=== PATIENT | female | born 2005 | race Caucasian/White ===

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

== ENCOUNTER 2024-03-16 21:45 | Emergency (ER) | payer BC ==
--- OUTSIDE RECORDS SUMMARY | 2024-03-16 21:48 | XMS REPORT | Continuity of Care Document ---
Author Name Unknown Address [address] [facility] [place] [address] [facility] thconnect Address [address] [place] [address] Care Team Providers Care Reject Opener And Filler Name Role Phone [email or web address] Attending Clinician Kay quinones Doctor Unassigned, [place] Attending Clinician Lissette Eli Attending Clinician [phone] Lexx Hook MD Attending Clinician [phone] [email or web address] Admitting Clinician Kay quinones Payers Payer Name Policy Type Policy Number Effective Date Expirati on Date Source BLUE CROSS-[place]: [employer]OL[employer]OSS (PPO) [id number] Problems Condition Name Condition Details Condition Category Status Onset Date Resolution Date Last Treatment Date Treating Clinician Comments Source Attention deficit hyperactiv ity disorder (ADHD), unspecifie d ADHD type Attention deficit hyperactiv ity disorder (ADHD), unspecifie d ADHD type Disease Active 02-08 00:00: 00 [facility] BMI (body mass index), pediatric, > 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), pediatric, > 99% for age Disease Active 02-08 00:00: 00 [facility] Allergies, Adverse Reactions, Alerts Allergy Name Allergy Type Status Severity Reaction(s) Onset Date Inactive Date Treating Clinician Comments Source No Known Allergie s DA Active U 11-28 00:00: 00 JEANNINE [facility] Social History Social Habit Start Date Stop Date Quantity Comments Source Tobacco use and exposure 2019-08-06 00:00:00 2019-08-06 00:00:00 Never used [facility] Alcohol intake 2019-08-06 00:00:00 2019-08-06 00:00:00 [facility] Sex Assigned At 2005 00:00:00 2005 00:00:00 [facility] Smoking Status Start Date Stop Date Source Never smoker [facility] Medications Ordered Medication Name Filled Medication Name Start Date Stop Date Current Medication? Ordering Clinician Indication Dosage Frequency Signature (SIG) Comments Components Source predniSONE 20 mg tablet 08-06 00:00: 00 Yes [id number] 20mg Take 1 tablet by mouth daily. [facility] FEMYNOR 0.25-35 mg-mcg per tablet 2018-07 00:00: 00 Yes TAKE ONE (1) TABLET(S) BY MOUTH ONCE A DAY. [facility] scopolamine transdermal 1.5 mg (1 mg over 3 days) patch 2016-07 00:00: 00 Yes 1.5mg Apply 1 Patch to area(s) every 72 (seventy-t wo) hours. [facility] Vital Signs Vital Name Observation Time Observation Value Comments S christiano Systolic blood pressure 2019-08-06 21:40:00 127 mm[Hg] [facility] Diastolic blood pressure 2019-08-06 21:40:00 82 mm[Hg] [facility] Heart rate 2019-08-06 21:40:00 71 /min [facility] Body temperature 2019-08-06 21:40:00 36.33 Hoa [facility] Respiratory rate 2019-08-06 21:40:00 16 /min [facility] Body weight 2019-08-06 21:40:00 126.554 kg [facility] Systolic blood pressure 2019-08-06 21:40:00 127 mm[Hg] [place] [facility] Diastolic blood pressure 2019-08-06 21:40:00 82 mm[Hg] [place] [facility] Heart rate 2019-08-06 21:40:00 71 /min [facility] Body temperature 2019-08-06 21:40:00 36.33 Hoa [facility] Respiratory rate 2019-08-06 21:40:00 16 /min [facility] Body weight 2019-08-06 21:40:00 126.554 kg [facility] Procedures Procedure Date / Time Performed Performing Clinician Source EXTERNAL PROVIDER RECORDS 2020-10-05 05:01:00 Doctor Unassigned, [place] [facility] EXTERNAL PROVIDER RECORDS 2020-02-04 05:01:00 Doctor Unassigned, [place] [facility] AUTHORIZATION FOR RELEASE OF PHI 2020-01-14 05:01:00 Doctor Unassigned, [place] [facility] AUTHORIZATION FOR RELEASE OF PHI 2020-01-01 05:01:00 Doctor Unassigned, [place] [facility] Encounters Start Date/Time End Date/Time Encounter Type Admission Type Attending [facility] Care Facility Care Department Encounter ID Source 2023-01-10 00:00:00 2023-01-10 00:00:00 Outpatient [email or web address] [facility] [id number] [facility] 2020-10-05 00:00:00 2020-10-05 00:00:00 Orders Only Doctor Unassigned, [place] [facility] ..840.114 350.1.13.10 4.2.7.2.686 [id number] [id number] [facility] 2020-09-09 00:00:00 2020-09-09 00:00:00 Telephone Lissette Solares [facility] ..840.114 350.1.13.10 4.2.7.2.686 [id number] [facility] 2020-02-04 00:00:00 2020-02-04 00:00:00 Orders Only Doctor Unassigned, [place] [facility] [id number] 350.1.13.10 4.2.7.2.686 [id number] [facility] 2020-01-14 00:00:00 2020-01-14 00:00:00 Orders Only Doctor Unassigned, [place] [facility] [id number] 350.1.13.10 4.2.7.2.686 [id number] [facility] 2020-01-10 00:00:00 2020-01-10 00:00:[address] [facility] [id number] 4.2.7.2.686 [id number] [facility] 2020-01-01 00:00:00 2020-01-01 00:00:00 Orders Only Doctor Unassigned, [place] [facility] [id number] 350.1.13.10 4.2.7.2.686 [id number] [facility] 2019-08-06 15:23:30 2019-08-06 15:53:[address] [facility] [id number] 350.1.13.10 4.2.7.2.686 [id number] 2019-08-06 15:23:30 2019-08-06 15:53:[address] [facility] [id number] 350.1.13.10 4.2.7.2.686 [id number] [facility] 2019-07-24 00:00:00 2019-07-24 00:00:[address] [facility] [id number] 350.1.13.10 4.2.7.2.686 [id number] [facility] Results Test Description Test Time Test Comments Results Result Co mments Source SURG 2018-12-11 16:03:00 --------RUN DATE: 12/11/18 [facility] - LAB *LIVE* PAGE 1 RUN TIME: 1604 Specimen Inquiry RUN USER: INTERFACE --------PATIENT: WILBER CANSECO LOC: AVRIL U #: [id number] AGE/SX: 13/F ROOM: RE11/29/18REG DR: Fauzia Guzman : 03 BED: DIS: STATUS: [facility] TLOC: -------- SPEC #: [id number] RECD: 11/30/18 STATUS: BERNARDA FLEMING #: [id number] DARIUSZ: 11/29/[address]: Fauzia Guzman MD ENTERED: 11/30/18 SP TYPE: SURG OTHR DR: Undefined Provider ORDERED: SURG PATH LVL 4 COPIES TO: Fauzia Guzman MD [address] [place] [id number] Undefined Provider HISTOLOGY: TISSUE ID BLK PCS ESME LEV PROCEDURE DISPOSITION ____ ___ ___ ___ OVARY, NOS A 1 1 PROCEDURES: SURG PATH LVL 4 (11/30/18-1045) TISSUES: A. OVARIAN - LEFT OVARIAN CYST CLINICAL HISTORY DYSMENORRHEA -N94.6; LT OVARIAN CYST -N83.292 CPT CODES CPT CODE(S): 76787 , , , , , , FINAL [...] of the cyst is smooth without excrescences. Tire Shop Manager sections submitted as A1 and A2. ba/nr Grossing performed at [facility] Pathology, [address], [address], CONTINUED ON NEXT PAGE --------RUN DATE: 12/11/18 [facility] - LAB *LIVE* PAGE 2 RUN TIME: 1604 Specimen Inquiry RUN USER: INTERFACE --------SPEC #: [facility]:[id number] PATIENT: WILBER CANSECO #[id number] (Continued) GROSS DESCRIPTION (Continued) [place], [place] [address]. [employer] Truck Operator: Victorino Rosario M.D. MICROSCOPIC DESCRIPTION Left ovarian cyst. Fragments of ovary and cyst wall are present. The simple cyst is lined by a single layer of bland epithelial cells with cilia, consistent with tubal type epithelium. There is no evidence of dysplasia or malignancy. /cm Signed SIGNATURE ON FILE KristinaRene tate Art 12/11/18 1603 -------- END OF REPORT CYTOLOGY 2018-12-03 14:27:00 --------RUN DATE: 12/03/18 [facility] - LAB *LIVE* PAGE 1 RUN TIME: 1427 Specimen Inquiry RUN USER: INTERFACE --------PATIENT: WILBER CANSECO LOC: AVRIL U #: [id number] AGE/SX: 13/F ROOM: RE11/29/18[facility] DR: Fauzia Guzman : 03 BED: DIS: STATUS: [facility] TLOC: -------- SPEC #: [id number] RECD: 11/30/18 STATUS: BERNARDA FLEMING #: [id number] DARIUSZ: 11/29/[address]: Fauzia Guzman MD ENTERED: 11/30/18 SP TYPE: CYTOLOGY OTHR DR: Undefined Provider ORDERED: MARILU HOLLOWAY COPIES TO: Fauzia Guzman MD [address] [place] [address] Undefined Provider HISTOLOGY: TISSUE ID BLK PCS ESME LEV PROCEDURE DISPOSITION ____ ___ ___ ___ PELVIS, NOS A 1 2 PROCEDURES: CB (12/03/18-1252) SUREPATH (11/30/18-1037) TISSUES: A. PELVIS, NOS - PELVIC WASHINGS CLINICAL HISTORY DYSMENORRHEA-N94.6;LT OVARIAN CYST-N83.292 CPT CODES CPT CODE(S): 27306 , 55625 , , , , , FINAL DIAGNOSIS Pelvis, washing: LYMPHOCYTES AND MESOTHELIAL CELLS NEGATIVE FOR ATYPICAL AND MALIGNANT CELLS GROSS DESCRIPTION Pelvic washings. Received are 40 mL of yellow fluid in tube. A SurePath slide and a cell block are prepared from the fluid and submitted for Pap stain and H E stain, respectively. /pdb Grossing performed at [facility] Pathology, [address] [place] [address], [address], [place] [address]. W[employer] Truck Operator: Victorino Rosario M.D. CONTINUED ON NEXT PAGE --------RUN DATE: 12/03/18 [facility] - LAB *LIVE* PAGE 2 RUN TIME: 1427 Specimen Inquiry RUN USER: INTERFACE --------SPEC #: [id number] PATIENT: WILBER CANSECO #[id number] (Continued) MICROSCOPIC DESCRIPTION Pelvic washings. The SurePath consists of lymphocytes as well as sheets of benign mesothelial cells. The cell block is sparsely cellular but shows similar histology. /karlos Signed SIGNATURE ON FILE Kayleigh Bonds 12/03/18 1427 -------- END OF REPORT URINALYSIS [id number] 11:42:00* Test Item Value Reference Range Interpretation Comme nts UA GLUCOSE DIPSTICK (test code = DGLUU) NEGATIVE mg/dL NEG UA BILIRUBIN DIPSTICK (test code = BILU) NEGATIVE mg/dL NEG UA KETONE DIPSTICK (test code = KETU) NEGATIVE mg/dL NEG UA SPECIFIC GRAVITY (test code = SGU) 1.015 SG 1.005-1.030 UA BLOOD DIPSTICK (test code = MAUREEN) NEGATIVE mg/DL NEG UA PH DIPSTICK (test code = KELSEA) 6.0 pH UNITS 5.0-7.0 UA PROTEIN DIPSTICK (test code = PROU) NEGATIVE mg/dL NEG UA UROBILINIOGEN DIPSTICK (test code = URO) 0.2 mg/dL <2.0 UA NITRITE DIPSTICK (test code = LEIGHTON) NEGATIVE SCREEN NEG UA LEUKOCYTE ESTERASE DIPSTICK (test code = LEUU) NEGATIVE Leuk/mcL NEGATIVE Urine Specimen Type: Clean CatchUR HCG [id number] 11:42:00* Test Item Value Reference Range Interpretation Comme nts UR HCG QUAL (test code = HCGQLU) NEGATIVE NEGATIVE Urine Specimen Type: Clean CatchURINALYSIS [id number] 11:31:00* Test Item Value Reference Range Interpretation Comme nts UA GLUCOSE DIPSTICK (test co de = DGLUU) mg/dL NEG UA BILIRUBIN DIPSTICK (test code = BILU) mg/dL NEG UA KETONE DIPSTICK (test cod e = KETU) mg/dL NEG UA SPECIFIC GRAVITY (test co de = SGU) SG 1.005-1.030 UA BLOOD DIPSTICK (test code = MAUREEN) mg/DL NEG UA PH DIPSTICK (test code = KELSEA) pH UNITS 5.0-7.0 UA PROTEIN DIPSTICK (test co de = PROU) mg/dL NEG UA UROBILINIOGEN DIPSTICK (t est code = URO) mg/dL <2.0 UA NITRITE DIPSTICK (test co de = LEIGHTON) SCREEN NEG UA LEUKOCYTE ESTERASE DIPSTI CK (test code = LEUU) Leuk/mcL NEGATIVE Urine Specimen Type: Clean CatchUR HCG [id number] 11:31:00* Test Item Value Reference Range Interpretation Comme nts UR HCG QUAL (test code = HCGQLU) NEGATIVE NEGATIVE Urine Specimen Type: Clean Catch Notes Date/Time Note Provider Source 2018-11-29 15:47:00 [id number] [place] [address] PATIENT NAME: WILBER CANSECO ADMIT DATE: 11/29/18 ACCOUNT NO: [id number] ROOM NO: AGE: 14 REPORT TYPE: OPERATIVE REPORT SEX: F ADMITTING PHYSICIAN: ATTENDING PHYSICIAN: Fauzia Guzman MD OPERATION DATE: 11/29/2018 PREOPERATIVE DIAGNOSES: Bilateral ovarian cysts, left ovarian cyst was the largest 6.3 cm; pelvic pain; and heavy periods. POSTOPERATIVE DIAGNOSES: Large left ovarian cyst about 6 to 7 cm, and right ovary had physiological cysts including a corpus luteum cyst. No evidence of endometriosis. Appendix normal. Gallbladder not well visualized. Liver unremarkable. INDICATIONS: The patient is a 13-year-old with adnexal masses and heavy periods. On pelvic ultrasound, she was found to have ____ mass monitored for 3 months and was without any change. We discussed options about observation with ultrasound followup versus removal of the cyst. The patient and mom ____ proceed with this. She was consented and brought to the OR. PROCEDURE IN DETAIL: After informed consent was verified, the patient was taken back to the OR and placed in supine position on the operating table. After general anesthesia was given, she was placed in dorsal lithotomy position. Arms were tucked inside. The abdomen, vagina, and perineum were prepped and draped in usual sterile fashion. Vinson was placed to drain the bladder and attached to a drainage bag. A small tip TARIK was used for manipulation. Then, this area was draped. A 1 cm infraumbilical incision was made with a scalpel. Using an open laparoscopy technique, fascia was incised and tagged with 0 Vicryl sutures on both edges. Peritoneum entered bluntly and S retractors placed. Site of entry was checked and was unremarkable. Upper abdominal survey was unremarkable as well. The patient was placed in a Trendelenburg position. A 5-mm suprapubic and left lower quadrant ports were placed under direct vision. I was able to visualize the left adnexal mass right on the top. Then, once all the ports were placed, inspection was performed on appendix, both tubes, and uterus. Rest of the pelvic peritoneum unremarkable. No endometriosis. Appendix was unremarkable. The left ovary had complex-appearing mass. One was with a thick wall and other one appeared to be thin wall. This thin wall structure was on to the side of the ovarian pole at the insertion of the infundibulopelvic ligament where the ovarian blood supply came in. The tube was intact, but stretched due to the mass. No other distortion. Pelvic washings were performed. Then, using the monopolar scissors, an incision was made on top of the ovarian capsule and extended about 6 cm to open up the capsule of the ovary and the cyst was gradually grasped and removed. There was clear serous fluid through the cyst that had ruptured and this fluid with thoroughly irrigated and suctioned. The PATIENT NAME: WILBER CANSECO rest of the ovarian mass, the cyst wall was gradually removed by traction, countertraction, and dissection with a tiny amount of it left at the level of the infundibulopelvic ligament insertion. This, I feared that if I removed aggressively it could cause bleeding that could lead to possible loss of the left ovary, so this was not found to be necessary at this time given the serous drainage from the cyst and thin walled nature of the cyst and most of the parts of the ovary. After the cyst was removed, both edges were brought back together just to be in lay adjacently to each other. No Interceed was available for me to rapid. Thorough irrigation suction performed. The right ovary was inspected very well. No evidence of any tumor here. Made an incision on the area that appeared to be more bulging than others, but there is a clear follicular cyst that was drained and there was a corpus luteal cyst that I did not touch. The irrigation suction was performed. The specimen was retrieved through the suprapubic trocar. After thorough irrigation and suction were performed again, trocars were removed under direct vision. After ____ was removed, the fascia was closed with 0 Vicryl in a [id number] fashion. Simple 4-0 Vicryl sutures to close the rest of the incisions. Vinson and TARIK were removed. The patient tolerated the procedure well. She was recovered from anesthesia in the OR and taken to the PACU in stable condition. Estimated blood loss was minimal. No complications. She will follow up with me in 1 week. Dictated By: Fauzia Guzman MD WT: OP:LAFTAB/JEREL/CARLOS Conf#: [id number]/DID#: [id number] Authenticated by Fauzia Guzman MD On 02/19/2019 11:26:15 AM at 1126 PATIENT NAME: WILBER CANSECO [facility]
[2024-03-16 22:48] LABS: Absolute Eosinophils 0.3 K/uL (0-0.5); Absolute Lymphocytes (CBC) 1.1 K/uL (0.7-4.9); Absolute Monocytes 0.6 K/uL (0.1-1.3); Absolute Neutrophil 9.3 K/uL (1.8-8.0); Basophils % 0.3 % (0-1.3); Eosinophils % 2.5 % (0-4.4); Hemoglobin 13.6 g/dL (12.0-15.0); Lymphocytes % 9.7 % (15.3-44.8); MCH 28.3 pg (27.0-35.0); MCHC 33.2 g/dL (32.0-36.0); MCV 85.2 fL (80-100); MPV 7.8 fL (7.6-11.3); Monocytes % 5.7 % (3.3-12.3); Neutrophils % 81.8 % (41.7-73.7); Platelets 272 thou/uL (152-406); RBC Red Blood Cell Count 4.82 M/uL (3.86-4.86); Red Cell Distribution Width 12.9 % (12.1-15.2)
[2024-03-16] MEDS ORDERED: FAMOTIDINE 20 MG/2 ML VIAL IV ONE (22:48)
[2024-03-16] MEDS ORDERED: KETOROLAC 30 MG/ML INJ ONE (22:48)
[2024-03-16] MEDS ORDERED: ONDANSETRON 4 MG/2 ML VIAL ONE (22:48)
[2024-03-16 22:57] LABS: Urine Bacteria None Seen /HPF (<20); Urine Bilirubin NEGATIVE (Negative); Urine Blood 3+ (OVER) (Negative); Urine Clarity Extremely Turbid (Clear); Urine Color Light-Yellow (Yellow); Urine Culture Reflex Order NOT NEEDED; Urine Glucose NEGATIVE (Negative); Urine Ketones NEGATIVE (Negative); Urine Microscopic Reflex YN ORDER UMIC; Urine Nitrite NEGATIVE (Negative); Urine Protein TRACE (Negative); Urine Urobilinogen Normal (Normal); Urine WBC <5 /HPF (<5); Urine pH 7.5 (5.0-7.0)
[2024-03-16 23:04] LABS: Albumin 3.6 g/dL (3.4-5.0); Albumin/Globulin Ratio 0.9 (1.1-1.8); Bilirubin Total 0.6 mg/dL (0.2-1.0); Globulin 4.2 g/dL (2.3-3.5); Protein, Total 7.8 g/dL (6.4-8.2)
[2024-03-16] MEDS ORDERED: MAGNES/ALUMIN/SIMET 30ML UCUP ONE (23:34)
[2024-03-16] MEDS ORDERED: LIDOCAINE VISCOUS 2% 10ML ORAL SOLN ONE (23:34)
--- NOTE | 2024-03-17 | ER ---
Nurse's Notes [facility] Name: Estevan Car Age: 19 yrs Sex: Female : 2005 Arrival Date: 03/16/2024 Time: 21:45 Bed 18 Private MD: Diagnosis: Noninfective gastroenteritis and colitis, unspecified Presentation: 03/16 22:02 Chief complaint: Patient states: Pt c/o left side abdominal pain, nausea, and diarrhea tl4 since 5pm. Coronavirus screen: At this time, the client does not indicate any symptoms associated with coronavirus-19. Ebola Screen: No symptoms or risks identified at this time. Initial Sepsis Screen: Does the patient meet any 2 criteria? No. Patient's initial sepsis screen is negative. Does the patient have a suspected source of infection? No. Patient's initial sepsis screen is negative. Risk Assessment: Do you want to hurt yourself or someone else? Patient reports no desire to harm self or others. Onset of symptoms was March 16, 2024 at 17:00. 22:02 Method Of Arrival: Ambulatory tl4 22:02 Acuity: HOLLY 3 tl4 Triage Assessment: 22:05 General: Appears uncomfortable, Behavior is calm, cooperative. Pain: Complains of pain tl4 in abdomen. EENT: No signs and/or symptoms were reported regarding the EENT system. Neuro: Level of Consciousness is awake, alert, obeys commands, Oriented to person, place, time, situation, Moves all extremities. Full function Speech is normal. Cardiovascular: Capillary refill < 3 seconds Patient's skin is warm and dry. Respiratory: Airway is patent Respiratory effort is even, unlabored, Respiratory pattern is regular, symmetrical. GI: Reports upper abdominal pain, diarrhea, nausea. : No signs and/or symptoms were reported regarding the genitourinary system. Derm: No signs and/or symptoms reported regarding the dermatologic system. Musculoskeletal: No signs and/or symptoms reported regarding the musculoskeletal system. FINANCIAL SERVICES INTERN: 22:07 LMP 03/16/2024, unknown tl4 22:10 LMP 03/16/2024, unknown aj3 Historical: - Allergies: 22:03 No Known Allergies; tl4 - Home Meds: 22:03 Humira Pen subcutaneous every 2 weeks [Active]; tl4 - PMHx: 22:03 Hidradenitis suppurativa; tl4 - PSHx: 22:03 ovarian cyst removed; Tonsillectomy; tl4 - Immunization history:: Adult Immunizations unknown. - Infectious Disease History:: Denies. - Social history:: Smoking status: Patient denies any tobacco usage or history of. Screenin:43 [facility] ED Fall Risk Assessment (Adult) History of falling in the last 3 months, cp4 including since admission No falls in past 3 months (0 pts) Confusion or Disorientation No (0 pts) Intoxicated or Sedated No (0 pts) Impaired Gait No (0 pts) Mobility Assist Device Used No (0 pt) Altered Elimination No (0 pt) Score/Fall Risk Level 0 - 2 = Low Risk Oriented to surroundings, Maintained a safe environment, Assessed \T\ reinforced patient's understanding of fall precautions, Hourly rounding (assess needs \T\ fall precautionary measures) done. Abuse screen: Denies threats or abuse. Nutritional screening: No deficits noted. Tuberculosis screening: No symptoms or risk factors identified. Assessment: 22:43 General: Appears in no apparent distress. uncomfortable, Behavior is calm, cooperative, cp4 appropriate for age. Pain: Complains of pain in abdomen Pain currently is 4 out of 10 on a pain scale. Neuro: Level of Consciousness is awake, alert, obeys commands, Oriented to person, place, time, situation. Cardiovascular: Patient's skin is warm and dry. Respiratory: Airway is patent Respiratory effort is even, unlabored. GI: Abdomen is obese, Bowel sounds present X 4 quads. Abd is soft and non tender X 4 quads. : No signs and/or symptoms were reported regarding the genitourinary system. EENT: No signs and/or symptoms were reported regarding the EENT system. Derm: No signs and/or symptoms reported regarding the dermatologic system. Musculoskeletal: No signs and/or symptoms reported regarding the musculoskeletal system. Vital Signs: 22:02 BP 130 / 84; Pulse 111; Resp 20; Temp 98.9(TE); Pulse Ox 100% ; Weight 113.4 kg; Height tl4 5 ft. 4 in. ; Pain 4/10; 03/17 00:10 BP 129 / 72; Pulse 98; Resp 18; Pulse Ox 100% ; cp4 03/16 22:02 Body Mass Index 42.91 (113.40 kg, 162.56 cm) tl4 03/16 22:02 Pain Scale: Adult tl4 ED Course: 03/16 21:49 Patient arrived in ED. gm2 21:50 Shwetha Lyons NP is PHCP. aj3 21:50 Louis Franz MD is Attending Physician. aj3 22:03 Triage completed. tl4 22:07 Arm band placed on left wrist. tl4 22:19 Jane Burrows is Primary Nurse. cp4 22:42 CBC with Diff Sent. cp4 22:42 CMP Sent. cp4 22:42 Lipase Sent. cp4 22:42 Test, Urine Sent. cp4 22:42 Urinalysis w/ reflexes Sent. cp4 22:43 Bed in low position. Call light in reach. Side rails up X 1. Provided Education on: cp4 abdominal pain. 22:43 No provider procedures requiring assistance completed. Inserted saline lock: 20 gauge cp4 in right antecubital area, using aseptic technique. Blood collected. Flushed with 10 mL NS. 03/17 00:10 intact, bleeding controlled, No redness/swelling at site. Pressure dressing applied. cp4 Administered Medications: 03/16 22:53 Drug: Famotidine IVP 20 mg IVP once; dilute with 10 mL 0.9% NaCl; give over 2 minutes cp4 Route: IVP; Site: right antecubital; 23:15 Follow up: Response: No adverse reaction cp4 22:53 Drug: TORadol - Ketorolac IVP 15 mg IVP once Route: IVP; Site: right antecubital; cp4 23:15 Follow up: Response: No adverse reaction; Pain is decreased cp4 22:53 Drug: Ondansetron IVP 4 mg IVP once; over 2 minutes Route: IVP; Site: right antecubital;cp4 23:15 Follow up: Response: No adverse reaction cp4 23:43 Not Given (Physician Discretion): GI Cocktail with - (maaloxsuspension 30 ml, cp4 lidocaine mucous membrane liquid 2 % 20 ml, phenobarbital-[id number] ml) PO once 23:44 Drug: GI Cocktail without - (Maalox PO 30 ml, Lidocaine Mucous Membrane 2 % 15 cp4 ml) PO once Route: PO; 03/17 00:11 Follow up: Response: No adverse reaction cp4 Medication: 03/16 22:43 VIS not applicable for this client. cp4 Outcome: 03/17 00:00 Discharge ordered by . aj3 00:10 Discharged to home ambulatory, cp4 00:10 Condition: stable 00:10 Discharge instructions given to patient, Instructed on discharge instructions, follow up and referral plans. medication usage, Demonstrated understanding of instructions, follow-up care, medications, Prescriptions given X 3, 00:11 Patient left the ED. cp4 Signatures: Shwetha Lyons, LISA CH[employer] CONTROL SPECIALIST malachi3 Jane Burrows cp4 Angela Dangelo gm2 Jr Mckay, RN RN tl4
--- NOTE | 2024-03-17 | EDPHYS ---
Physician Documentation [facility] Name: Estevan Car Age: 19 yrs Sex: Female : 2005 Arrival Date: 03/16/2024 Time: 21:45 Bed 18 Private MD: ED Physician Louis Franz HPI: 03/16 22:10 This 19 yrs old Female presents to ER via Ambulatory with complaints of Fever, aj3 Abdominal Pain, Diarrhea, Nausea. 22:10 Patient reports symptoms started about 4 or 5 PM today with some left/middle upper aj3 abdominal pain associated with the diarrhea and nausea. She denies any other sick contacts or suspicious food intake.. 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 - Infectious Disease History:: Denies. - Social history:: Smoking status: Patient denies any tobacco usage or history of. ROS: 22:10 Constitutional: Positive for fever, aj3 22:10 Abdomen/GI: Positive for abdominal pain, nausea, diarrhea, 22:10 All other systems are negative, 03/17 00:06 Constitutional: Negative for fever, chills, and weight loss, Cardiovascular: Negative aj3 for chest pain, palpitations, and edema, Respiratory: Negative for shortness of breath, cough, wheezing, and pleuritic chest pain, Exam: 03/16 22:10 Constitutional: This is a well developed, well nourished patient who is awake, alert, aj3 and in no acute distress. Respiratory: Lungs have equal breath sounds bilaterally, clear to auscultation and percussion. No rales, rhonchi or wheezes noted. No increased work of breathing, no retractions or nasal flaring. Skin: Warm, dry with normal turgor. Normal color with no rashes, no lesions, and no evidence of cellulitis. MS/ Extremity: Pulses equal, no cyanosis. Neurovascular intact. Full, normal range of motion. Neuro: Awake and alert, GCS 15, oriented to person, place, time, and situation. Motor strength 5/5 in all extremities. Sensory grossly intact. Normal gait. Cardiovascular: Rate: tachycardic, Rhythm: regular, Abdomen/GI: Bowel sounds: normal, Palpation: mild abdominal tenderness, Epigastric, left upper quadrant and periumbilical. No guarding or rebound tenderness, Vital Signs: 22:02 BP 130 / 84; Pulse 111; Resp 20; Temp 98.9(TE); Pulse Ox 100% ; Weight 113.4 kg; Height tl4 5 ft. 4 in. ; Pain 10/10; 03/17 00:10 BP 129 / 72; Pulse 98; Resp 18; Pulse Ox 100% ; cp4 03/16 22:02 Body Mass Index 42.91 (113.40 kg, 162.56 cm) tl4 03/16 22:02 Pain Scale: Adult tl4 MDM: 03/16 22:05 Patient medically screened. aj3 22:10 Differential diagnosis: Gastroenteritis, gastritis, pancreatitis, cholelithiasis, aj3 diverticulitis. 03/17 00:04 Data reviewed: vital signs, nurses notes, lab test result(s). I considered the aj3 following discharge prescriptions or medication management in the emergency department Medications were administered in the Emergency Department. See MAR. Test considered but Not performed: CT: CT scan offered but patient wanted to try medications first. Historians other than the Patient: Parent: Mother. Counseling: I had a detailed discussion with the patient and/or guardian regarding the historical points, exam findings, and any diagnostic results supporting the discharge/admit diagnosis, lab results, the need for outpatient follow up, to return to the emergency department if symptoms worsen or persist or if there are any questions or concerns that arise at home. Medication response: Zofran markedly relieved the patient's nausea. 03/16 22:13 Order name: CBC with Diff; Complete Time: 22:55 [facility] 03/16 22:13 Order name: CMP; Complete Time: 23:04 [facility] 03/16 22:13 Order name: Lipase; Complete Time: 23:04 [facility] 03/16 22:13 Order name: Test, Urine; Complete Time: 22:58 [facility] 03/16 22:13 Order name: Urinalysis w/ reflexes; Complete Time: 22:58 3 03/16 22:13 Order name: IV Saline Lock; Complete Time: 22:42 3 03/16 22:13 Order name: Labs collected and sent; Complete Time: 22:42 aj3 Administered Medications: 03/16 22:53 Drug: Famotidine IVP 20 mg IVP once; dilute with 10 mL 0.9% NaCl; give over 2 minutes cp4 Route: IVP; Site: right antecubital; 23:15 Follow up: Response: No adverse reaction cp4 22:53 Drug: TORadol - Ketorolac IVP 15 mg IVP once Route: IVP; Site: right antecubital; cp4 23:15 Follow up: Response: No adverse reaction; Pain is decreased cp4 22:53 Drug: Ondansetron IVP 4 mg IVP once; over 2 minutes Route: IVP; Site: right antecubital;cp4 23:15 Follow up: Response: No adverse reaction cp4 23:43 Not Given (Physician Discretion): GI Cocktail with - (maaloxsuspension 30 ml, cp4 lidocaine mucous membrane liquid 2 % 20 ml, phenobarbital-[id number] ml) PO once 23:44 Drug: GI Cocktail without - (Maalox PO 30 ml, Lidocaine Mucous Membrane 2 % 15 cp4 ml) PO once Route: PO; 03/17 00:11 Follow up: Response: No adverse reaction cp4 Disposition: 00:11 Co-signature as Attending Physician, Louis Franz MD I reviewed the patient's care rt provided by the Advanced Practice Provider and agree with the diagnosis and treatment plan. Disposition Summary: 03/17/24 00:00 Discharge Ordered Problem: new aj3 Symptoms: have improved aj3 Condition: Stable aj3 Diagnosis - Noninfective gastroenteritis and colitis, unspecified aj3 Followup: aj3 - With: Private Physician - When: - Reason: Recheck today's complaints, Re-evaluation by your physician Followup: aj3 - With: Emergency Department - When: - Reason: If symptoms return Discharge Instructions: - Discharge Summary Sheet aj3 - Viral Gastroenteritis, Adult aj3 Forms: - Medication Reconciliation Form aj3 - Antibiotic Education aj3 - Prescription Opioid Use aj3 - Patient Portal Instructions aj3 - Leadership Thank You Letter aj3 Prescriptions: - Carafate 100 mg/mL Oral suspension - take 10 milliliter ORAL route before meals and at bedtime for 7 days; 2000 aj3 milliliter; Refills: 0, Product Selection Permitted - omeprazole 40 mg Oral capsule,delayed release (e.c.) - dissolve 1 capsule ORAL route daily morning before breakfast; 14 capsule; aj3 Refills: 0, Product Selection Permitted - ondansetron 4 mg Oral Tablet,disintegrating - take 1 tablet ORAL route every 8 hours; 10 tablet; Refills: 0, Product aj3 Selection Permitted Signatures: Dispatcher [employer] EDMS Shwetha Lyons, AUTO PARTS HANDLER AUTO PARTS HANDLER aj3 Louis Franz MD MD rt Potter, Christina cp4 Jr Mckay RN RN tl4 Corrections: (The following items were deleted from the chart) 03/16 22:13 22:13 CBC+H.LAB.BRZ ordered. EDMS EDMS 22:13 22:13 COMPREHENSIVE METABOLIC PANEL+C.LAB.BRZ ordered. EDMS EDMS 22:13 22:13 LIPASE+C.LAB.BRZ ordered. EDMS EDMS 22:13 22:13 Test, Urine+UC.LAB.BRZ ordered. EDMS EDMS 22:13 22:13 Urinalysis+U.LAB.BRZ ordered. EDMS EDMS
[2024-03-17 00:28] VITALS: TEMP 98.9; O2SAT 100
[2024-03-17 00:30] VITALS: BP 129/72
== END 2024-03-17 00:11 | disposition home or self-care (01) ==
LOC: ER 21:45
DX: K52.9 Noninfective gastroenteritis and colitis, unspecified (principal)
CPT/HCPCS: 85025; 81001; 36415; 81025; 83690; 80053; 96375; 96374; 99284; J2405

== ENCOUNTER 2024-07-23 11:32 | Emergency (ER) | payer BC ==
[2024-07-23] MEDS ORDERED: ONDANSETRON 4 MG/2 ML VIAL ONE (11:49)
[2024-07-23] MEDS ORDERED: dexAMETHasone 10 MG/ML VIAL ONE (11:49)
[2024-07-23] MEDS ORDERED: NA CHLORIDE 0.9% 500 ML ONE (11:50)
[2024-07-23] MEDS ORDERED: KETOROLAC 30 MG/ML INJ ONE (11:50)
[2024-07-23 12:11] LABS: Absolute Eosinophils 0.5 K/uL (0-0.5); Absolute Lymphocytes (CBC) 0.8 K/uL (0.7-4.9); Absolute Monocytes 0.9 K/uL (0.1-1.3); Absolute Neutrophil 10.5 K/uL (1.8-8.0); Basophils % 0.2 % (0-1.3); Eosinophils % 3.7 % (0-4.4); Hematocrit 41.2 % (36.0-45.0); Lymphocytes % 6.5 % (15.3-44.8); MCH 28.3 pg (27.0-35.0); MCHC 33.9 g/dL (32.0-36.0); MCV 83.2 fL (80-100); MPV 8.2 fL (7.6-11.3); Monocytes % 7.2 % (3.3-12.3); Neutrophils % 82.4 % (41.7-73.7); Nucleated Red Blood Cells % 0.1 % (0-0); Platelets 237 thou/uL (152-406); RBC Red Blood Cell Count 4.95 M/uL (3.86-4.86); Red Cell Distribution Width 13.6 % (12.1-15.2)
[2024-07-23 12:20] LABS: SARS-CoV-2 Antigen CONTROL BLUE LINE VIS/BG OK; SARS-CoV-2 Antigen Rapid Res Negative (Negative)
[2024-07-23 12:25] LABS: Anion Gap 8.8 mEq/L (5.0-15.0); Potassium 3.8 mEq/L (3.5-5.1)
--- NOTE | 2024-07-23 12:28 | ER ---
Nurse's Notes [facility] Name: Estevan Gamez Age: 19 yrs Sex: Female : 2005 Arrival Date: 07/23/2024 Time: 11:32 Bed 13 Private MD: Diagnosis: Viral infection, unspecified;Streptococcal pharyngitis Presentation: 07/23 11:42 Chief complaint: Patient states: Cough, sore throat, fever, vomiting and ear pain onset cm10 4 days ago. Pt seen at urgent care on Monday and diagnosed with a viral illness. pt states that she is not feeling better. Coronavirus screen: Client denies travel out of the [place] in the last 14 days. Ebola Screen: Patient denies travel to an Ebola-affected area in the 21 days before illness onset. Initial Sepsis Screen: Does the patient meet any 2 criteria? HR > 90 bpm. Does the patient have a suspected source of infection? No. Patient's initial sepsis screen is negative. Risk Assessment: Do you want to hurt yourself or someone else? Patient reports no desire to harm self or others. Onset of symptoms was July 19, 2024. 11:42 Method Of Arrival: Ambulatory cm10 11:42 Acuity: HOLLY 3 cm10 Triage Assessment: 11:44 General: Appears uncomfortable, Behavior is calm, cooperative. Pain: Complains of pain cm10 in right ear and left ear. EENT: Throat is reddened Reports pain when swallowing. Neuro: No deficits noted. Level of Consciousness is awake, alert, obeys commands, Oriented to person, place, time, situation, Appropriate for age. Respiratory: Reports cough that is non-productive, Airway is patent Respiratory effort is even, unlabored, Respiratory pattern is regular, symmetrical, Onset: The symptoms/episode began/occurred 4 days, the patient has mild shortness of breath. 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 - Infectious Disease History:: Denies. - Social history:: Smoking status: Patient denies any tobacco usage or history of. Screenin:46 [place] ED Fall Risk Assessment (Adult) History of falling in the last 3 months, cm10 including since admission No falls in past 3 months (0 pts) Confusion or Disorientation No (0 pts) Intoxicated or Sedated No (0 pts) Impaired Gait No (0 pts) Mobility Assist Device Used No (0 pt) Altered Elimination No (0 pt) Score/Fall Risk Level 0 - 2 = Low Risk Oriented to surroundings, Maintained a safe environment, Hourly rounding (assess needs \T\ fall precautionary measures) done. Abuse screen: Denies threats or abuse. Denies injuries from another. Nutritional screening: No deficits noted. Tuberculosis screening: No symptoms or risk factors identified. Assessment: 11:47 General: SEE TRIAGE ASSESSMENT. cm10 Vital Signs: 11:42 BP 131 / 70; Pulse 113; Resp 15; Temp 99.2(O); Pulse Ox 98% on R/A; Weight 127.01 kg; cm10 Height 5 ft. 4 in. ; Pain 7/10; 12:23 BP 105 / 62; Pulse 93; Pulse Ox 98% ; ec2 11:42 Body Mass Index 48.06 (127.01 kg, 162.56 cm) cm10 11:42 Pain Scale: Adult cm10 ED Course: 11:34 Patient arrived in ED. mr 11:34 Armando Peace MD is Attending Physician. ec2 11:42 Komal Morgan, ASTON is Primary Nurse. cm10 11:44 Triage completed. cm10 11:44 Arm band placed on right wrist. Patient placed in an exam room, on a stretcher. cm10 11:46 Patient has correct armband on for positive identification. Bed in low position. Call cm10 light in reach. Side rails up X2. Provided Education on: ER process and procedures,. Pulse ox on. NIBP on. 12:02 BMP Sent. kb4 12:02 CBC with Diff Sent. kb4 12:02 Strep Sent. kb4 12:02 SARS RAPID Sent. kb4 12:02 Flu Sent. kb4 12:02 Initial lab(s) drawn, by ny, sent to lab. COVID swab sent to lab. Flu and/or RSV swab kb4 sent to lab. Strep swab sent to lab. Inserted saline lock: 20 gauge in left antecubital area, using aseptic technique. Blood collected. Flushed with 10 mL NS. 12:46 No provider procedures requiring assistance completed. IV discontinued, intact, ss bleeding controlled, No redness/swelling at site. Pressure dressing applied. Administered Medications: 12:02 Drug: NS 0.9% IV 500 ml 500 ml IV at 1 bolus once; to be given as a bolus over 30 cm10 minutes Volume: 500 ml; Route: IV; Rate: 1 bolus; Site: left antecubital; 12:46 Follow up: IV Status: Completed infusion; IV Intake: 500ml ss 12:02 Drug: Decadron - Dexamethasone IVP 10 mg IVP once Route: IVP; Site: left antecubital; cm10 12:45 Follow up: Response: No adverse reaction; Pain is decreased ss 12:02 Drug: Ketorolac IVP 15 mg IVP once Route: IVP; Site: left antecubital; cm10 12:45 Follow up: Response: No adverse reaction; Pain is decreased ss 12:02 Drug: Ondansetron IVP 4 mg IVP once; over 2 minutes Route: IVP; Site: left antecubital; cm10 12:45 Follow up: Response: No adverse reaction ss 12:37 Drug: Amoxicillin-Clavulanate PO 875 mg PO once Route: PO; ss 12:45 Follow up: Response: Medication Administered at Departure ss 12:37 Drug: Acetaminophen PO 1000 mg PO once Route: PO; ss 12:45 Follow up: Response: Medication Administered at Departure Medication: 11:46 VIS not applicable for this client. cm10 Intake: 12:46 IV: 500ml; Total: 500ml. Outcome: 12:27 Discharge ordered by MD. isaac 12:46 Discharged to home ambulatory, with family, 12:46 Condition: good 12:46 Discharge instructions given to patient, family, Instructed on discharge instructions, follow up and referral plans. medication usage, Demonstrated understanding of instructions, follow-up care, medications, Prescriptions given X 3, 12:46 Patient left the ED. Signatures: Marlyn Bruce, Reg Reg mr Libia Gregory, ASTON RN ss Komal Morgan RN RN cm10 Armando Peace MD MD ec2 [place] Umana kb4 Corrections: (The following items were deleted from the chart) 11:44 11:42 Chief complaint: cm10 cm10
--- NOTE | 2024-07-23 12:28 | EDPHYS ---
Physician Documentation [facility] Name: Estevan Gamez Age: 19 yrs Sex: Female : 2005 Arrival Date: 07/23/2024 Time: 11:32 Bed 13 Private MD: ED Physician Armando Peace HPI: 07/23 11:45 This 19 yrs old Female presents to ER via Ambulatory with complaints of ec2 Breathing Difficulty, Sore Throat, Vomiting, Fever. 11:45 Patient arrives today for evaluation of upper respiratory symptoms. Patient been having ec2 cough and congestion as well as sore throat, bilateral ear pain as well as body aches. Patient has been taking prescribed promethazine for her symptoms. Patient reports that symptoms been persistent for the past 4 days.. 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 - Infectious Disease History:: Denies. - Social history:: Smoking status: Patient denies any tobacco usage or history of. ROS: 11:45 Constitutional: as per hpi ec2 Exam: 11:45 Constitutional: GEN: NAD Head: atraumatic Eyes: EOMI Ears: External ears are normal. ec2 Bilateral tympanic membranes are clear without otitis media. Mouth: Posterior pharyngeal erythema without exudates appreciated. CV: Tachycardia LUNGS: no respiratory distress, no wheezes or rales or rhonchi ABD: non-distended, soft, nontender, not guarding, not rigid SKIN: no evidence of rashes MSK: no evidence of trauma Vital Signs: 11:42 BP 131 / 70; Pulse 113; Resp 15; Temp 99.2(O); Pulse Ox 98% on R/A; Weight 127.01 kg; cm10 Height 5 ft. 4 in. ; Pain 7/10; 12:23 BP 105 / 62; Pulse 93; Pulse Ox 98% ; ec2 11:42 Body Mass Index 48.06 (127.01 kg, 162.56 cm) cm10 11:42 Pain Scale: Adult cm10 MDM: 11:35 Medical Screening Exam initiated ec2 11:45 Data reviewed: vital signs, nurses notes. ED course: Patient arrives today for ec2 evaluation of upper respiratory symptoms. Examination yields tachycardic individual who has posterior pharyngeal erythema. Will obtain viral swabs, strep swab. Will treat the patient's symptoms. Suspect viral infection.. 12:27 ED course: Metabolic profile reassuring, flu negative. Strep testing positive. Will ec2 treat patient for strep pharyngitis.. 07/23 11:42 Order name: Flu; Complete Time: 12:27 cm10 07/23 11:42 Order name: SARS RAPID; Complete Time: 12:23 cm10 07/23 11:42 Order name: Strep; Complete Time: 12:23 10 07/23 11:44 Order name: CBC with Diff; Complete Time: 12:23 ec2 07/23 11:44 Order name: BMP; Complete Time: 12:27 ec2 07/23 11:44 Order name: IV Start; Complete Time: 12:02 ec2 Administered Medications: 12:02 Drug: NS 0.9% IV 500 ml 500 ml IV at 1 bolus once; to be given as a bolus over 30 cm10 minutes Volume: 500 ml; Route: IV; Rate: 1 bolus; Site: left antecubital; 12:46 Follow up: IV Status: Completed infusion; IV Intake: 500ml ss 12:02 Drug: Decadron - Dexamethasone IVP 10 mg IVP once Route: IVP; Site: left antecubital; cm10 12:45 Follow up: Response: No adverse reaction; Pain is decreased ss 12:02 Drug: Ketorolac IVP 15 mg IVP once Route: IVP; Site: left antecubital; cm10 12:45 Follow up: Response: No adverse reaction; Pain is decreased ss 12:02 Drug: Ondansetron IVP 4 mg IVP once; over 2 minutes Route: IVP; Site: left antecubital; cm10 12:45 Follow up: Response: No adverse reaction ss 12:37 Drug: Amoxicillin-Clavulanate PO 875 mg PO once Route: PO; ss 12:45 Follow up: Response: Medication Administered at Departure ss 12:37 Drug: Acetaminophen PO 1000 mg PO once Route: PO; ss 12:45 Follow up: Response: Medication Administered at Departure ss Disposition Summary: 07/23/24 12:27 Discharge Ordered Notes: Location: Home ec2 Condition: Stable ec2 Diagnosis - Viral infection, unspecified ec2 - Streptococcal pharyngitis ec2 Followup: ec2 - With: Private Physician - When: - Reason: Re-evaluation by your physician Discharge Instructions: - Discharge Summary Sheet ec2 - Viral Illness, Adult ec2 Forms: - Medication Reconciliation Form ec2 - Antibiotic Education ec2 - Prescription Opioid Use ec2 - Patient Portal Instructions ec2 - Leadership Thank You Letter ec2 Prescriptions: - Augmentin 875-125 mg Oral Tablet - take 1 tablet ORAL route every 12 hours for 10 days; 20 tablet; Refills: 0, ec2 Product Selection Permitted - Zofran 4 mg Oral Tablet - take 1 tablet ORAL route every 12 hours As needed; 20 tablet; Refills: 0, ec2 Product Selection Permitted - Prednisone 20 mg Oral Tablet - take 2 tablets ORAL route once daily for 5 days; 10 tablet; Refills: 0, Product ec2 Selection Permitted Signatures: Dispatcher [employer] EDLibia Cardenas RN RN Komal Morgan RN RN cm10 Armando Peace MD MD ec2 Corrections: (The following items were deleted from the chart) 11:42 11:42 Influenza Screen (A \T\ B)+BA.LAB.BRZ ordered. EDMS EDMS 11:42 11:42 SARS-COV-2 Antigen Rapid+I.LAB.BRZ ordered. EDMS EDMS 11:42 11:42 Group A Streptococcus Rapid Sc+BA.LAB.BRZ ordered. EDMS EDMS 11:45 11:45 CBC+H.LAB.BRZ ordered. EDMS EDMS 11:45 11:45 BASIC METABOLIC PANEL+C.LAB.BRZ ordered. EDMS EDMS
[2024-07-23] MEDS ORDERED: AMOX/K CLAV 875 MG TAB ONE (12:33)
[2024-07-23] MEDS ORDERED: ACETAMINOPHEN 500 MG TAB ONE (12:33)
[2024-07-23 13:00] VITALS: TEMP 99.2; O2SAT 98
[2024-07-23 13:05] VITALS: BP 105/62
== END 2024-07-23 12:46 | disposition home or self-care (01) ==
LOC: ER 11:32
DX: J02.0 Streptococcal pharyngitis (principal); B34.9 Viral infection, unspecified; Z11.52 Encounter for screening for COVID-19
CPT/HCPCS: 96361; 85025; 80048; 36415; 87081; 87804 ×2; 96375; 96374; 99284; 87811; J1100; J2405; J7040